=== PATIENT | female | born 1980 | race Caucasian/White ===

== ENCOUNTER 2016-10-08 13:01 | Emergency (ER) | payer MEDICAID ==
[~2016-10-08] VITALS: Ht 157.5 cm; Wt 97.2 kg
[2016-10-08 13:59] LABS: BASOPHIL % 0.8 % (0-2); PLATELET COUNT 293 x10^3mcL (130-400); RED CELL DISTRIBUTION WIDTH 14.2 % (11.5-14.5)
[2016-10-08 14:24] LABS: microscopic required? YES; urine erythrocyte 2+ (NEGATIVE)
[2016-10-08 17:20] VITALS: BP 120/64
== END 2016-10-08 17:20 | disposition home or self-care (01) ==
LOC: ED 13:01
PROVIDERS: Emergency Medicine
DX: O03.9 Complete or unspecified spontaneous abortion without complication (principal); E11.9 Type 2 diabetes mellitus without complications; Z3A.08 8 weeks gestation of pregnancy; Z98.890 Other specified postprocedural states
CPT/HCPCS: 36415; Q0092